=== PATIENT | male | born 1995 | race African-American/Black ===

== ENCOUNTER 2020-05-23 01:47 | Emergency (ER) | payer SELFPAY ==
[2020-05-23] MEDS ORDERED: ONDANSETRON INJ 4 MG/2 ML VIAL IV ONE (01:56)
[2020-05-23] MEDS ORDERED: ALUM & MAG HYDROX-SIMETHICONE 30 ML, LIDOCAINE VISCOUS 2% 15 ML PO ONE ×2 (01:56)
[2020-05-23] MEDS ORDERED: MORPHINE SULFATE INJ 10 MG/ML VIAL IV ONE (01:56)
--- NOTE | 2020-05-23 02:00 | ED.PDOC ---
History of Present Illness - General Chief Complaint: Abdominal Pain Stated Complaint: Abdominal pain and nausea Time Seen by Provider: 05/23/20 01:56 Information Source: patient Exam Limitations: no limitations - History of Present Illness Initial Comments: Pt says he's had increasing abdominal pain over the last few hours. Pt says it is in upper abdomen, sharp and dull, nonradiating. Pt has nausea, but no vomiting, diarrhea or constipation. He says he's urinating normally. He has no F/C. He was seen at [facility] within the last 24 hours for same issue and was given Morphine and Dilaudid. Pt says he's had this issue multiple times over the past several months, and has had a CT that was unremarkable. He has been told on multiple occasions that he needs to f/u with GI to get endoscopy. Only surgical history is cholecystitis. Pt does not drink alcohol or smoke cigarettes, but admits to marijuana use. Pt says he has been told in the past that this may be related to marijuana use, but his primary doctor thinks it may be something else. Pt says the last time he smoked marijuana was 2 days ago. Abdominal Pain Onset Location: RUQ, LUQ, epigastric Pain Radiation: no radiation Quality: moderate, severe Timing/Duration: 1-3 hours Improving Factors: nothing Worsening Factors: eating Associated Symptoms: nausea/vomiting Review of Systems - Review of Systems Constitutional: States: no symptoms reported EENTM: States: no symptoms reported Respiratory: States: no symptoms reported Cardiology: States: no symptoms reported. Denies: chest pain, palpitations, syncope Gastrointestinal/Abdominal: States: abdominal pain, nausea. Denies: constipation, diarrhea, vomiting Musculoskeletal: States: no symptoms reported Skin: States: no symptoms reported Neurological: States: no symptoms reported Endocrine: States: no symptoms reported Family Medical History - Family History Mother Family History: Unknown Physical Exam - Physical Exam General Appearance: Alert, Obvious distress, Well Developed, Well Groomed, Well Hydrated, Well Nourished Eyes, Ears, Nose, Throat Exam: PERRL/EOMI, normal ENT inspection Neck: full range of motion Respiratory: chest non-tender, lungs clear, normal breath sounds, no respiratory distress, no accessory muscle use Cardiovascular/Chest: normal peripheral pulses, regular rate, rhythm, no edema, no gallop Gastrointestinal/Abdominal: normal bowel sounds, soft, tenderness - upper abdomen Back Exam: normal inspection, no CVA tenderness Extremity: non-tender, no pedal edema Neurologic: alert, normal mood/affect Progress - Progress Progress: 05/23/20 02:23 Laboratory Results WBC 10.5 K/mm3 (4.8-10.8) 05/23/20 02:00 RBC 5.08 M/mm3 (4.70-6.10) 05/23/20 02:00 Hgb 15.4 gm/dL (14.0-18.0) 05/23/20 02:00 Hct 44.6 % (42.0-52.0) 05/23/20 02:00 MCV 87.7 fl (80.0-94.0) 05/23/20 02:00 MCH 30.3 pg (27.0-31.0) 05/23/20 02:00 MCHC 34.6 g/dL (33.0-37.0) 05/23/20 02:00 RDW 14.8 % (11.5-14.5) H 05/23/20 02:00 Plt Count 346 K/mm3 (130-400) 05/23/20 02:00 MPV 6.6 fl (7.40-10.4) L 05/23/20 02:00 Absolute Neuts (auto) 5.90 K/uL (1.8-6.8) 05/23/20 02:00 Absolute Lymphs (auto) 3.50 K/uL (1.0-3.4) H 05/23/20 02:00 Absolute Monos (auto) 1.10 K/uL (0.2-0.8) H 05/23/20 02:00 Absolute Eos (auto) 0.00 K/uL (0.0-0.4) 05/23/20 02:00 Absolute Basos (auto) 0.10 K/uL (0.0-0.1) 05/23/20 02:00 Neutrophils % 55.7 % (42.0-78.0) 05/23/20 02:00 Lymphocytes % 33.6 % (20.0-50.0) 05/23/20 02:00 Monocytes % 10.0 % (2.0-9.0) H 05/23/20 02:00 Eosinophils % 0.2 % (1.0-5.0) L 05/23/20 02:00 Basophils % 0.5 % (0.0-2.0) 05/23/20 02:00 Sodium 138 mmol/L (135-145) 05/23/20 02:00 Potassium 3.2 mmol/L (3.6-5.0) L 05/23/20 02:00 Chloride 101 mmol/L (101-111) 05/23/20 02:00 Carbon Dioxide 24 mmol/L (21-31) 05/23/20 02:00 Anion Gap 16.2 (12-18) 05/23/20 02:00 BUN 12 mg/dL (7-18) 05/23/20 02:00 Creatinine 0.92 mg/dL (0.6-1.3) 05/23/20 02:00 BUN/Creatinine Ratio 13.0 (10-20) 05/23/20 02:00 Random Glucose 101 mg/dL (70-105) 05/23/20 02:00 Serum Osmolality 275.6 mOsm/L (275-295) 05/23/20 02:00 Calcium 9.2 mg/dL (8.4-10.2) 05/23/20 02:00 Total Bilirubin 0.8 mg/dL (0.2-1.0) 05/23/20 02:00 AST 34 IU/L (10-42) 05/23/20 02:00 ALT 24 IU/L (10-60) 05/23/20 02:00 Alkaline Phosphatase 79 IU/L (42-121) 05/23/20 02:00 Serum Total Protein 8.1 gm/dL (6.4-8.2) 05/23/20 02:00 Albumin 4.6 g/dl (3.2-5.5) 05/23/20 02:00 Globulin 3.5 gm/dL (2.3-3.5) 05/23/20 02:00 Albumin/Globulin Ratio 1.3 (1.1-1.9) 05/23/20 02:00 Lipase 27 U/L (22-51) 05/23/20 02:00 Pt much more comfortable at this time. Vitals nonacute. This is clearly a chronic, recurrent issue. Pt's marijuana use likely a contributing factor, although outpt w/u still in progress. I do not feel it is medically appropriate to d/c him home on either NSAIDS or narcotics considering workups have been unremarkable to this point. 05/23/20 11:31 Vital Signs - 24 hr 05/23/20 05/23/20 01:50 02:31 Temperature 98.2 F Pulse Rate [ 92 H 77 monitor] Respiratory 22 16 Rate Blood Pressure 212/125 168/98 [Right Arm] O2 Sat by Pulse 97 99 Oximetry Departure - Departure Clinical Impression: Upper abdominal pain, Marijuana use, Essential hypertension, History of cholecystectomy Time of Disposition: 02:25 Disposition: Discharge to Home or Self Care Condition: Excellent Departure Forms: ED Discharge - Pt. Copy, Patient Portal Self Enrollment Instructions: DI for Abdominal Pain-Adult Diet: resume usual diet Prescriptions: Promethazine Tab [Phenergan Tablet] 25 mg PO Q6HR #20 tab Dicyclomine HCl [Bentyl] 20 mg PO TID #30 tab Home Medications: Ambulatory Orders Dicyclomine HCl [Bentyl] 20 mg PO TID #30 tab 05/23/20 Promethazine Tab [Phenergan Tablet] 25 mg PO Q6HR #20 tab 05/23/20
[2020-05-23 02:02] VITALS: TEMP 98.2
[2020-05-23 02:32] VITALS: BP 168/98; O2SAT 99
== END 2020-05-23 02:32 | disposition home or self-care (01) ==
LOC: ER 01:47
DX: R10.10 Upper abdominal pain, unspecified (principal); I10 Essential (primary) hypertension; F12.90 Cannabis use, unspecified, uncomplicated; R11.0 Nausea; Z90.49 Acquired absence of other specified parts of digestive tract
CPT/HCPCS: 80053; 83690; 85025; J2060; J2270; J2405